=== PATIENT | male | born 1990 | race Caucasian/White ===

== ENCOUNTER 2017-08-05 10:41 | Emergency (ER) | payer SELFPAY ==
[2017-08-05 11:25] VITALS: BP 132/68
--- NOTE | 2017-08-05 12:04 | UC ---
Ear Complaint HPI - HPI Summary HPI Summary: Pt presents with right ear pain x 4 days. 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 Pt with right ear pain and popping since yesterday. non fevers,chills. Last night developed throbbing pain in ear with radiation to upper jaw. relief with motrin. no drainage. no celestin, vision changes. tdap UTD no sinus pain, pnd, sore throat. no dental pain pt's medications reviewed this visit - History of Current Complaint Chief Complaint: UCEar Stated Complaint: EAR PAIN Time Seen by Provider: 08/05/17 11:52 Hx Obtained From: Patient Onset/Duration: Gradual Onset Severity Initially: Moderate Severity Currently: Moderate Pain Intensity: 5 Pain Scale Used: 0-10 Numeric Aggravating Factors: Other - touch Alleviating Factors: OTC Meds Associated Signs/Symptoms: Positive: Foreign Body Sensation - Allergies/Home Medications Allergies/Adverse Reactions: Allergies Allergy/AdvReac Type Severity Reaction Status Date / Time adhesive tape Allergy Blisters Verified 08/05/17 11:26 Home Medications: Home Medications Ibuprofen TAB* [Motrin TAB* 800 MG] 800 mg PO ONCE PRN 08/05/17 [History Confirmed 08/05/17] PMH/Surg Hx/FS Hx/Imm Hx Previously Healthy: Yes - Surgical History Surgical History: Yes Surgery Procedure, Year, and Place: Left arm metal plate, then removed about age 15 yrs - Family History Known Family History: Positive: Hypertension - Social History Occupation: Employed Full-time Lives: With Family Alcohol Use: Occasionally Substance Use Type: None Smoking Status (MU): Former Smoker When Did the Patient Quit Smoking/Using Tobacco: July 2017 Review of Systems Constitutional: Negative ENT: Ear Ache All Other Systems Reviewed And Are Negative: Yes Physical Exam - Summary Physical Exam Summary: Vital Signs Reviewed: Yes Eyes: Conjunctiva Clear, DAMARIS. EOM intact and full ENT: Hearing grossly normal right canal - inflammed with yellow, soft cerumen at TM, diffuse erythema of canal. no mastoid pain. Unable to see TM. Left TM wnl, mmoist, uvula midling, no exudate, no erythema Neck: Positive: Supple Respiratory: Positive: No respiratory distress, No accessory muscle use + CTA throughout no w/r Cardiovascular: RRR nl s1, s2 no m/r CBT <2 sec Musculoskeletal Exam: WAITE x 4 without difficulty Strength Intact, ROM Intact, Og Neurological: Positive: Alert, Other: - + sensation throughout Psychological: Positive: Normal Response To Family Skin: Positive: no rash,, no ecchymosis Triage Information Reviewed: Yes Vital Signs: Initial Vital Signs Temp 98.1 F 08/05/17 11:17 Pulse 74 08/05/17 11:17 Resp 20 08/05/17 11:17 BP 132/68 08/05/17 11:17 Pulse Ox 100 08/05/17 11:17 Ear Complaint Course/Dx - Course Course Of Treatment: Pt with rght ear pain. [facility] pt with right external OM. unable to see TM. Will Rx oral abx and drops. Pt does not have insurance - spoke with pharmacist - okay for ophtho drops for otic application. pt comfortable and in agreement with plan. return precautions discusses - Differential Dx/Diagnosis Provider Diagnoses: right external otitis , right OM Discharge - Sign-Out/Discharge Documenting (check all that apply): Discharge/Admit/Transfer - Discharge Plan Condition: Stable Disposition: HOME Prescriptions: Amoxicillin PO (*) [Amoxicillin 500 MG CAP*] 500 mg PO TID #21 cap Neomycin/Polymyxin B/Dexametha [Wdlxbl-Izzsl-Puirywai Eye Drop] 5 ml OP TID #1 drops.susp Patient Education Materials: Ear Infection (ED) [place]: [facility] [place] [facility] [[place]] No Primary Care Phys,NOPCP [Primary Care Provider] - Additional Instructions: - Take antibiotics daily as prescribed until gone. Take with food - Use ear drops exactly as prescribed - Okay to alternate ibuprofen (Advil, Motrin) 600mh and tylenol 1000mg every 3 hours for pain or fever - Avoid getting water in your ear - use and ear plug if you will be in the water - It is recommended you take a decongestant such as pseudoephederine, Claritin-D , Macarena-D, Zytrec-D to help with congestion of your ear - Contact your doctor, return here, or the physician referral center with questions or concerns - Billing Disposition and Condition Condition: STABLE Disposition: HOME
== END 2017-08-05 12:38 | disposition home or self-care (01) ==
LOC: UCCORT 10:41
DX: H60.91 Unspecified otitis externa, right ear (principal); H66.91 Otitis media, unspecified, right ear; Z91.09 Other allergy status, other than to drugs and biological substances; Z87.891 Personal history of nicotine dependence
CPT/HCPCS: 99202; G0463

== ENCOUNTER 2018-07-18 10:32 | Emergency (ER) | payer SELFPAY ==
[2018-07-18 11:20] VITALS: BP 125/82
--- NOTE | 2018-07-18 11:48 | UC ---
UC General HPI - HPI Summary HPI Summary: Right toe ingrown nail - Has had issues as a child and they did nail removal on his left great toe. Has been painful over the past week. SOaking with epsom salts 2-3 times per day without much improvement. Works in [employer] and is concerned it is making it worse. No fever. No system systems. meds reviewed - History of Current Complaint Chief Complaint: UCSkin Stated Complaint: RIGHT GREAT TOE CONCERN Time Seen by Provider: 07/18/18 11:37 Pain Intensity: 3 - Allergy/Home Medications Allergies/Adverse Reactions: Allergies Allergy/AdvReac Type Severity Reaction Status Date / Time adhesive tape Allergy Blisters Verified 07/18/18 11:20 PMH/Surg Hx/FS Hx/Imm Hx Previously Healthy: Yes - Surgical History Surgical History: Yes Surgery Procedure, Year, and Place: Left arm metal plate, then removed about age 15 yrs - Family History Known Family History: Positive: Hypertension - Social History Alcohol Use: Weekly Substance Use Type: None Smoking Status (MU): Current Every Day Smoker Type: Cigarettes Amount Used/How Often: 1/4 ppd Length of Time of Smoking/Using Tobacco: since age 15 Have You Smoked in the Last Year: Yes When Did the Patient Quit Smoking/Using Tobacco: July 2017 Review of Systems All Other Systems Reviewed And Are Negative: Yes Physical Exam Triage Information Reviewed: Yes Appearance: Well-Appearing Vital Signs: Initial Vital Signs Temp 96.7 F 07/18/18 11:12 Pulse 64 07/18/18 11:12 Resp 14 07/18/18 11:12 BP 125/82 07/18/18 11:12 Pulse Ox 100 07/18/18 11:12 Vital Signs Reviewed: Yes Skin: Positive: Other - right great toe - edema and mild ecchymosis and erythema around lateral nail bed Good cap refill and pulses. Good ROM Course/Dx - Course Course Of Treatment: This is a 27 yr old with right great toe nail pain Plan Recommend continue soaks with warm soapy water 2-3 times per day After soak pull skin back away from nail STart keflex as prescribed If symptoms persist or worsen, follow up with parts order and stock clerk or return to urgent care - Diagnoses Provider Diagnosis: Ingrown toenail of right foot Discharge - Sign-Out/Discharge Documenting (check all that apply): Patient Departure All imaging exams completed and their final reports reviewed: No Studies - Discharge Plan Condition: Good Disposition: HOME Prescriptions: Cephalexin CAP* [Keflex CAP*] 500 mg PO TID #14 cap Patient Education Materials: Ingrown Nail (ED) Forms: *Work Release Referrals: No Primary Care Phys,NOPCP [Primary Care Provider] - Additional Instructions: Recommend continue soaks with warm soapy water 2-3 times per day After soak pull skin back away from nail STart keflex as prescribed If symptoms persist or worsen, follow up with parts order and stock clerk or return to urgent care - Billing Disposition and Condition Condition: GOOD Disposition: Home
== END 2018-07-18 11:55 | disposition home or self-care (01) ==
LOC: UCCORT 10:32
DX: L60.0 Ingrowing nail (principal); F17.210 Nicotine dependence, cigarettes, uncomplicated
CPT/HCPCS: 99212; G0463

== ENCOUNTER 2018-11-27 14:05 | Emergency (ER) | payer OTHER ==
[2018-11-27 14:38] VITALS: BP 141/80
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
== END 2018-11-27 15:31 | disposition home or self-care (01) ==
LOC: UCCORT 14:05
DX: M19.011 Primary osteoarthritis, right shoulder (principal); F17.210 Nicotine dependence, cigarettes, uncomplicated
CPT/HCPCS: 99211; G0463